=== PATIENT | female | born 1965 | race Caucasian/White ===

== ENCOUNTER → 2023-01-05 | Outpatient (CLI) | payer OTHER ==
[~2023-01-05] MED LIST: PANT40TA2 PO
== END ==
LOC: CARD 09:00
PROVIDERS: ATTEND Internal Medicine Cardiovascular Disease
DX: E11.9 Type 2 diabetes mellitus without complications (principal); R06.09 Other forms of dyspnea
CPT/HCPCS: 93306

== ENCOUNTER → 2023-01-18 | Outpatient (CLI) | payer OTHER ==
[~2023-01-18] MED LIST changes: +REGADENOSON 0.4 MG/5 ML SYR (LEXISCAN) IV ONE
[2023-01-18] MEDS: CATHETER FLUSH 10 ML SYR IVP PRN ×2 (12:30→13:28)
[2023-01-18 13:29] VITALS: BP 150/75
--- NOTE | 2023-01-20 09:09 | STRESS TEST ---
DATE OF SERVICE: 01/18/2023 RESTING AND POST REGADENOSON TECHNETIUM-99M TETROFOSMIN SPECT CT IMAGING ORDERING PHYSICIAN: Amisha Santoyo APRN PRIMARY PHYSICIAN: Dr. Crain. CLINICAL DIAGNOSIS: Shortness of breath. Baseline images were carried out after injection of 10.73 mCi of technetium-99m tetrofosmin. This was followed by 0.4 mg regadenoson and 32 mCi of technetium-99m tetrofosmin for stress imaging. The electrocardiogram showed sinus rhythm at baseline. It did not change significantly with the regadenoson infusion. Review of images at rest and following stress does not indicate any significant perfusion defects consistent with myocardial ischemia or infarction. Gated images show normal global left ventricular systolic function with normal regional wall motion. Left ventricular ejection fraction is calculated to be 72%. CONCLUSIONS: 1. No evidence of any significant myocardial ischemia or infarction study. 2. Normal regional wall motion. 3. Normal global left ventricular systolic function with a calculated ejection fraction of 72%. Job ID: [id number] DocumentID: [id number] Dictated Date: 01/20/2023 08:01:23 Can Marker Date: 01/20/2023 08:48:00 Dictated By: EDU MORRIS MD; KRAIG; FACP; FACC;
== END ==
LOC: CARD 12:30
PROVIDERS: ATTEND Nurse Practitioner Family
DX: R06.09 Other forms of dyspnea (principal)
CPT/HCPCS: 78452; 93017

== ENCOUNTER → 2023-01-31 | Outpatient (CLI) | payer OTHER ==
[~2023-01-31] MED LIST changes: -REGADENOSON 0.4 MG/5 ML SYR (LEXISCAN) IV ONE
--- NOTE | 2023-01-31 08:35 | Diagnostic Imaging Report ---
INDICATION: TYPE 2 DIABETES MELLITUS, ABDOMINAL AORTIC ANEURYSM SCREENING. TECHNIQUE: Grayscale sonographic images of the abdominal aorta. CORRELATION STUDY: None FINDINGS: Overall assessment is limited by overlying bowel gas and body habitus. Abdominal Aorta Proximal: 1.8 x 1.3 cm Mid: 1.6 x 0.9 cm Distal: Not visualized Common Iliac Arteries Right CLARE: Not visualized Left CLARE: Not visualized IMPRESSION: 1. Incomplete visualization of the low abdominal aorta. Visualized segments of the abdominal aorta demonstrate no aneurysm. Dictated by: Dictated on workstation # [id number]
== END ==
LOC: RAD 07:14
PROVIDERS: ATTEND Internal Medicine Cardiovascular Disease
DX: E11.9 Type 2 diabetes mellitus without complications (principal)
CPT/HCPCS: 76775